=== PATIENT | male | born 1975 | race Caucasian/White ===

== ENCOUNTER 2018-05-01 16:31 | Emergency (ER) | payer SELFPAY ==
--- NOTE | 2018-05-01 16:48 | Emergency Department Record ---
History of Present Illness - General Chief complaint: Extremity Problem Stated complaint: LT LEG CALF PAIN RADIATING UP TO HIP Time Seen by Provider: 05/01/18 16:47 Source: Patient Mode of Arrival: Ambulatory Limitations: No limitations - History of Present Illness Initial comments: Pain to left buttock to left lateral knee onset last PM. No injury , trauma, fall. No numbness, no B/B incont. No hx back injury. 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 No urinary complaints or flank pains. + Smoker. Also 2 days ago stepped on a nail left heel. No signs of FB or tenderness. Last Tetanus?? MD Complaint: Extremity pain Onset/Timin -: Days(s) Location: Left, Knee, Thigh History of Same: No -: No Arthralgia, No Fever, No Associated dyspnea, No Associated chest pain Radiation: Distal Severity scale (1-10): 5 Quality: Sharp Consistency: Intermittent Improves with: Rest Worsens with: Other (Worse sitting better up. ) - Related Data Previous Rx's Medication Instructions Recorded Prednisone [Prednisone 20Mg] 20 mg PO DAILY 6 Days #9 tab 05/01/18 Allergies Allergy/AdvReac Type Severity Reaction Status Date / Time No Known Drug Allergies Allergy Verified 05/01/18 16:53 Review of Systems Constitutional: Denies: Chills, Fever Eyes: Denies: Eye discharge, Vision change ENT: Denies: Congestion, Dental pain Respiratory: Denies: Cough Cardiovascular: Denies: Chest pain Endocrine: Denies: Fatigue Gastrointestinal: Denies: Abdominal pain Genitourinary: Denies: Discharge Skin: Denies: Bruising Neurological: Reports: As per HPI Psychiatric: Denies: Anxiety Past Medical History - SOCIAL HISTORY Smoking Status: Current every day smoker - RESPIRATORY Hx Respiratory Disorders: Yes Comment:: Pneumo - CARDIOVASCULAR Hx Cardio Disorders: No - NEURO Hx Neuro Disorders: No - GI Hx GI Disorders: No - Hx Genitourinary Disorders: No - ENDOCRINE Hx Endocrine Disorders: No - MUSCULOSKELETAL Hx Musculoskeletal Disorders: No - PSYCH Hx Psych Problems: No - HEMATOLOGY/ONCOLOGY Hx Hematology/Oncology Disorders: No Family Medical History Hx Cancer: Father, Mother, Grandparents Hx Stroke: Father Physical Exam - General General Appearance: Alert, Oriented x3, Cooperative, No acute distress - Head Head exam: Atraumatic - Eye Eye exam: Normal appearance, PERRL, EOMI - ENT ENT exam: Mucous membranes moist, Normal external ear exam, Normal orophraynx - Neck Neck exam: Normal inspection - Respiratory Respiratory exam: Normal lung sounds bilaterally. negative: Rhonchi, Stridor - Cardiovascular Cardiovascular Exam: Regular rate, Normal rhythm. negative: Tachycardia Peripheral Pulses: 2+: Dorsalis Pedis (R), Dorsalis Pedis (L) - GI/Abdominal GI/Abdominal exam: Soft, Normal bowel sounds. negative: Tenderness - Extremities Extremities exam: Normal inspection (No knee or hip effusions or laxity left LE > Left heel with puncture on plantar surface. No erythema or drainage. ), Full ROM. negative: Calf tenderness, Joint swelling, Tenderness - Back Back exam: Reports: Normal inspection. Denies: Muscle spasm, Paraspinal tenderness, Tenderness - Neurological Neurological exam: Abnormal gait (DTR +2/4 = bilateral patellar. Good motor tone and toe flex/ext against resistance. Gait stable but slow. Intact urine and bowel by hx. SLR pain at 45 degree on left. ), Alert, Oriented X3 - Psychiatric Psychiatric exam: Normal affect, Normal mood - Skin Skin exam: Normal color. negative: Petechiae, Rash Course - Reevaluation(s) Reevaluation #1: 05/01/18 17:22 pt with radicular pains left LE> No skin lesions. SLR pain at 45 degree. Gait stable. Discussed steroids at home with tylenol for pain. No NSAIDs or ETOH with steroids - risk of ulcer. Rest off work 3 days. Clinic referral Disposition Disposition: Discharge Clinical Impression: Sciatica of left side, Puncture wound of left heel without complication Disposition: Home, Self-Care Condition: (1) Good Instructions: Sciatica (ED), Puncture Wound (ED) Additional Instructions: Rest. Heat or ice as needed. Off work 3 days. Return to ED if needed. [facility] follow up Prescriptions: Prednisone [Prednisone 20Mg] 20 mg PO DAILY 6 Days #9 tab Referrals: [facility] [Provider Group] Forms: Patient Portal Access Quality - Quality Measures Quality Measures: N/A - Blood Pressure Screening Does Patient Have Any of the Following: No Blood Pressure Classification: Hypertensive Reading Systolic Measurement: 139 Diastolic Measurement: 97 Screening for High Blood Pressure: Patient Exclusion, Hx of HTN [G9744]
[2018-05-01] MEDS ORDERED: Diph,Pert(Acell),Tet Vac 0.5 ML SYR IM ONE (17:11)
== END 2018-05-01 17:43 | disposition home or self-care (01) ==
LOC: ER 16:31
DX: S91.332A Puncture wound without foreign body, left foot, initial encounter (principal); M54.42 Lumbago with sciatica, left side; M25.562 Pain in left knee; W45.0XXA Nail entering through skin, initial encounter; F17.210 Nicotine dependence, cigarettes, uncomplicated
CPT/HCPCS: 90715; 96372; 99283

== ENCOUNTER 2018-05-18 18:53 | Emergency (ER) | payer SELFPAY ==
--- NOTE | 2018-05-18 19:15 | Emergency Department Record ---
History of Present Illness - General Chief Complaint: Difficulty Breathing Stated Complaint: CHICHI,COUGH Time Seen by Provider: 05/18/18 19:11 Source: Patient Mode of Arrival: Ambulatory Limitations: No limitations - History of Present Illness Initial Comments: 42 yo male presents to ED for evaluation of cough and congestion symptoms for the past 8 days. Patient denies fevers/chills, denies productive cough symptoms. Patient does report a history of "blisters" along the lung periphery that have resulted in pneumothorax, and is s/p pleuradesis bilaterally. Patient denies history of asthma or COPD, is a current smoker. MD Complaint: Cough Onset/Timin -: Days(s) Severity: Moderate Quality: Aching Consistency: Constant Improves With: Nothing Worsens With: Coughing Known History Of: Other Context: Recent URI Associated Symptoms: Denies other symptoms Treatments Prior to Arrival: None - Related Data Home Oxygen Therapy: No Previous Rx's Medication Instructions Recorded Azithromycin [Zithromax] 250 mg PO DAILY #6 tablet 05/18/18 Allergies Allergy/AdvReac Type Severity Reaction Status Date / Time No Known Drug Allergies Allergy Verified 05/18/18 19:01 Travel Screening - Travel/Exposure Within Last 30 Days Have you traveled within the last 30 days?: No - Travel/Exposure Within Last Year Have you traveled outside the [place] in the last year?: No - Additonal Travel Details Have you been exposed to anyone with a communicable illness?: No - Travel Symptoms Symptom Screening: None Review of Systems Constitutional: Denies: Chills, Fever, Malaise, Night sweats Eyes: Denies: Eye discharge, Eye pain ENT: Reports: Congestion. Denies: Ear pain, Epistaxis Respiratory: Reports: Cough. Denies: Dyspnea Cardiovascular: Denies: Chest pain, Dyspnea on exertion Endocrine: Denies: Fatigue, Heat or cold intolerance Gastrointestinal: Denies: Abdominal pain, Nausea, Vomiting Genitourinary: Denies: Incontinence, Retention Musculoskeletal: Denies: As per HPI Skin: Denies: Change in color, Change in hair/nails Neurological: Denies: Abnormal gait, Confusion, Headache Psychiatric: Denies: Anxiety Hematological/Lymphatic: Denies: Anemia, Blood Clots Past Medical History - SOCIAL HISTORY Smoking Status: Current every day smoker Alcohol Use: None Drug Use: None - RESPIRATORY Hx Respiratory Disorders: Yes Comment:: Pneumo - CARDIOVASCULAR Hx Cardio Disorders: No - NEURO Hx Neuro Disorders: No - GI Hx GI Disorders: No - Hx Genitourinary Disorders: No - ENDOCRINE Hx Endocrine Disorders: No - MUSCULOSKELETAL Hx Musculoskeletal Disorders: No - PSYCH Hx Psych Problems: No - HEMATOLOGY/ONCOLOGY Hx Hematology/Oncology Disorders: No Family Medical History Any Significant Family History?: Yes Hx Cancer: Father, Mother, Grandparents Hx Stroke: Father Physical Exam - General General Appearance: Alert, Oriented x3, Cooperative, No acute distress, Other ( Well appearing on exmaination without respiratory distress noted.) Limitations: No limitations - Head Head exam: Atraumatic, Normocephalic, Normal inspection Head exam detail: negative: Abrasion, Contusion, Strange's sign, General tenderness, Hematoma, Laceration - Eye Eye exam: Normal appearance. negative: Conjunctival injection, Periorbital swelling, Periorbital tenderness, Scleral icterus - ENT Ear exam: negative: Auricular hematoma, Auricular trauma Nasal Exam: negative: Active bleeding, Discharge, Dried blood, Foreign body Mouth exam: negative: Drooling, Laceration, Tongue elevation - Neck Neck exam: Normal inspection. negative: Meningismus, Tenderness - Respiratory Respiratory exam: Normal lung sounds bilaterally. negative: Respiratory distress, Rhonchi, Stridor, Wheezes - Cardiovascular Cardiovascular Exam: Regular rate, Normal rhythm, Normal heart sounds - GI/Abdominal GI/Abdominal exam: Soft. negative: Rebound, Rigid, Tenderness - Rectal Rectal exam: Deferred - exam: Deferred - Extremities Extremities exam: Normal inspection. negative: Calf tenderness, Pedal edema, Tenderness - Back Back exam: Denies: CVA tenderness (R), CVA tenderness (L) - Neurological Neurological exam: Alert, Normal gait, Oriented X3 - Psychiatric Psychiatric exam: Normal affect, Normal mood - Skin Skin exam: Normal color. negative: Abrasion Type of lesion: negative: abrasion Course Vital Signs 05/18/18 18:55 Temperature 99.2 F Pulse Rate 88 Respiratory 24 Rate Blood Pressure 130/84 Pulse Ox 88 L - Reevaluation(s) Reevaluation #1: 05/18/18 20:40 CXR: No acute process Patient was updated on his result, will prescribe Zithromax to be filled if his symptoms fail to improve or worsen. Patient is in agreement with the plan of care as discussed, and appears stable for discharge at this time. I did discuss the use of an albuterol inhaler, patient declined and denies wheezing symptoms at home. Disposition Disposition: Discharge Clinical Impression: URI (upper respiratory infection) Qualifiers: URI type: unspecified URI Qualified Code(s): J06.9 - Acute upper respiratory infection, unspecified Disposition: Home, Self-Care Condition: (2) Stable Instructions: Upper Respiratory Infection (ED) Additional Instructions: Return to ED if your symptoms worsen or if you have any concerns. Zithromax as directed. Follow-up with your family doctor in 3-5 days as directed. Prescriptions: Azithromycin [Zithromax] 250 mg PO DAILY #6 tablet Forms: Patient Portal Access Time of Disposition: 20:42 Quality - Quality Measures Quality Measures: N/A - Blood Pressure Screening Does Patient Have Any of the Following: No Blood Pressure Classification: Pre-Hypertensive BP Reading Systolic Measurement: 130 Diastolic Measurement: 84 Screening for High Blood Pressure: < Pre-Hypertensive BP, F/U Documented > [ G8950] Pre-Hypertensive Follow-up Interventions: Referral to alternative/primary care provider.
--- NOTE | 2018-05-21 08:29 | RADIOLOGY REPORT ---
EXAM: CHEST, TWO VIEWS HISTORY: COUGH. TECHNIQUE: Frontal and lateral views of the chest were performed. Comparison: None. FINDINGS: The heart size is normal. No pulmonary vascular congestion. No infiltrate or pleural effusion. The osseous structures are normal. IMPRESSION: NEGATIVE CHEST EXAMINATION. JOB NUMBER: [id number] MTDD
== END 2018-05-18 20:47 | disposition home or self-care (01) ==
LOC: ER 18:53
DX: J06.9 Acute upper respiratory infection, unspecified (principal); R06.00 Dyspnea, unspecified; R05 Cough; F17.210 Nicotine dependence, cigarettes, uncomplicated
CPT/HCPCS: 71046; 99283